=== PATIENT | male | born 1960 | race Caucasian/White ===

== ENCOUNTER 2023-10-19 09:31 | Observation (INO) ==
--- NOTE | 2023-07-20 14:20 | History & Physical Report ---
Date of Service July 20, 2023 Assessment & Plan (1) Dupuytren's contracture of left hand: Plan: 1. Extensive return of Dupuytren disease with contractures, left hand 2. 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 History of ESRD on dialysis via LUE fistula, MWF 4. History steal syndrome from fistula 5. History DM2 -Patient notes progression of the contractures in his left fingers/hand as condition returned following previous fasciectomy surgery and subsequent Xiaflex injection was not successful -Dr. De Leon met with the patient at bedside as well and discussed surgical options. Discussed limited time for surgery due to tourniquet use and will need to do surgery in a step-sue fashion starting with the most severe digits Will plan for: -Left index finger palmar fasciectomy in finger and palm -Left middle finger palmar fasciectomy in finger and palm -Left 1st webspace z-plasty, 2 limb, 60 degree -May need to do additional capsulectomies if necessary Will plan for forearm tourniquet below the fistula Patient will need to obtain a hgbA1c prior to surgery to ensure levels are within adequate range to allow optimal healing. The risks and benefits have been discussed including, but not limited to, risk of infection, nerve injury, stiffness, loss of motion, failure to improve, etc. Reasonable outcomes and options of treatment were discussed. An explanation of appropriate alternatives to the procedure that may be advantageous were discussed and their risks and benefits, as well as the risks and benefits of not proceeding with treatment. I offered to answer any additional inquiries concerning the treatment involved. All the patient's questions were answered. The patient is agreeable, understanding of the treatment plan and alternatives, and wishes to proceed with the treatment plan. Plan for surgical treatment shortly. History of Present Illness Chief Complaint: Left hand Dupuytren's contractures Primary Care Provider: NO PCP Mr. Merida is a 63 year old male with history of ESRD on dialysis MWF with LUE fistula and DM2 who presents for pre-operative assessment to discuss left palmar fasciectomies for which he was previously evaluated by Dr. De Leon. Patient notes progression of the contractures in his fingers/hand as condition returned following previous fasciectomy surgery and subsequent Xiaflex injection was not successful. He is anticipating surgery as the contractures have continued to worsen and he is unable to use his hand secondary to this. The patient does have history of DM2, no recent hgbA1c. He is not currently on any diabetic medications. He denies the use of anticoagulants/antiplatelets. Past Med/Surg History Medical History Family history of diabetes mellitus (DM) Dyslipidemia HTN (hypertension) DM2 (diabetes mellitus, type 2) Dialysis patient ESRD (end stage renal disease) Surgical History Status post Dupuytren's fasciectomy AV fistula Family History Other Family history of diabetes mellitus (DM) Social History Smoking Status: Smoker, status unknown Tobacco Type: Smokeless Tobacco (Dip or Chew) Hx Substance Use: No Review of Systems Review of Systems: All systems were reviewed and were negative unless otherwise stated in HPI as above Physical Exam Physical Exam: General: Resting in chair, no acute distress Heart: Regular rate and rhythm Lungs: Good inspiratory effort on room air, clear bilaterally LUE: Fistula in place with palpable thrill Left index finger: MP extension contracture 65 degrees, PIP extension contracture 105 degrees. Questionable cord at the PIP Left middle finger/hand: MP extension contracture 75 degrees, PIP extension contracture 90 degrees with palpable palmar nodule extending into the index and middle fingers Left ring finger: MP extension contracture 75 degrees, PIP extension contracture 70 degrees with palpable cord in the palm extending into the PIP Left small finger: Chronic boutonniere deformity. MP extension contracture 60 degrees, PIP extension contracture 100 degrees with palpable PIP cord Left thumb/1st webspace: Webspace contracture with palpable cord
--- NOTE | 2023-08-11 10:50 | Anesthesiology Consultation ---
Date of Service August 11, 2023 Assessment & Plan (1) Encounter for pre-operative examination: - Check BMP AM DOS (Dialysis MWF) - Check BSG AM DOS - Infectious disease screening: Per assessment on 08/06/23: No known infectious disease contacts or current infectious disease symptoms. No noted recent Covid positive test result. Patient is on dialysis. Unable to have preop Covid testing prior so will order [facility] test DOS per protocol. - Preop testing: No recent CXR- most recent available CXR from 02/05/23 notes "Bilateral airspace opacities with mild interstitial prominence which may reflect developing edema and/or infection." Patient seen by [facility] 07/20/23- notes "Lungs: Good inspiratory effort on room air, clear bilaterally" > Will update CXR DOS. - Patient acceptable risk for given surgery pending evaluation/preop testing DOS. Chart Review Chart Review: Acceptable Risk for Surgery and Patient NOT seen in Pre Admission Testing History Surgery Operation Date: 08/17/23 13:50 Proposed Procedures p Left Middle and Index Palmar Fasciectomy in Finger and Palm, Left Thumb Webspace Release and Z-Plasty - Bruce De Leon MD Height/Weight Height: 6 ft 2 in Weight: 95.254 kg Allergies Allergy/AdvReac Type Severity Reaction Status Date / Time No Known Allergies Allergy Verified 08/06/23 09:36 Medications Home Medications Medication Instructions Recorded Confirmed Last Taken amlodipine 10 mg tablet 10 mg PO DAILY 08/06/23 08/06/23 Unknown atorvastatin 40 mg tablet 40 mg PO DAILY 08/06/23 08/06/23 Unknown cetirizine 10 mg tablet 10 mg PO DAILY PRN Congestion 08/06/23 08/06/23 Unknown clonidine 0.2 mg/24 hr weekly 0.2 mg topical 2XWK 08/06/23 08/06/23 Unknown transdermal patch gabapentin 100 mg capsule 100 mg PO BID 08/06/23 08/06/23 Unknown lisinopril 40 mg tablet 40 mg PO DAILY 08/06/23 08/06/23 Unknown sevelamer carbonate 800 mg tablet 800 mg PO TID 08/06/23 08/06/23 Unknown Past Medical History Medical History (Updated 08/11/23 @ 10:40 by Penelope Hanna) Dupuytren's contracture of left hand Acid reflux Occasional Diabetic neuropathy legs Hyperlipidemia History of COVID-2019 Dyslipidemia HTN (hypertension) DM2 (diabetes mellitus, type 2) Diet controlled (no meds at present) Dialysis patient M/W/F, [facility] in [place] ESRD (end stage renal disease) Follows with Dr. Fermin ([facility]) Past Family History Family History Other Family history of diabetes mellitus (DM) Past Surgical History Surgical History Cataracts, bilateral s/p surgery Aug 2022 PH History of esophagogastroduodenoscopy (EGD) History of colonoscopy History of tooth extraction Status post Dupuytren's fasciectomy right x2, left x1 AV fistula left Social History Smoking Status: Never smoker Do You Dip or Chew Tobacco: No (remote hx) Hx Alcohol Use: No Hx Substance Use: No substance use type: does not use Testing Laboratory Results 07/21/23 WBC 9.2 H/H 11.1/35.5 PLATELETS 230 SODIUM 134 POTASSIUM 4.7 CHLORIDE 98 CO2 23 BUN 51 CREATININE 6.88 Electrocardiogram Date: 02/05/23 SR at 91bpm. Possible LAE. Possible LVH. Possible septal infarct, age indeterminate (per sheet rocker comparison on tracings, "criteria for infarct are new- although actual ECG changes are minor"). Borderline IVCD. NS TWA. Chest X-Ray Date: 02/05/23 Bilateral airspace opacities with mild interstitial prominence which may reflect developing edema and/or infection.
--- NOTE | 2023-10-14 17:42 | History & Physical Report ---
Date of Service October 14, 2023 Assessment & Plan (1) Dupuytren's contracture of left hand: Plan: 1. Extensive return of Dupuytren disease with contractures, left hand 2. 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 History of ESRD on dialysis via LUE fistula, MWF 4. History steal syndrome from fistula 5. History DM2 -Patient notes progression of the contractures in his left fingers/hand as condition returned following previous fasciectomy surgery and subsequent Xiaflex injection was not successful -Dr. De Leon met with the patient at bedside as well and discussed surgical options. Discussed limited time for surgery due to tourniquet use and will need to do surgery in a step-sue fashion starting with the most severe digits Will plan for: -Left index finger palmar fasciectomy in finger and palm -Left middle finger palmar fasciectomy in finger and palm -Left 1st webspace z-plasty, 2 limb, 60 degree -May need to do additional capsulectomies if necessary Will plan for forearm tourniquet below the fistula Patient will need to obtain a hgbA1c prior to surgery to ensure levels are within adequate range to allow optimal healing. The risks and benefits have been discussed including, but not limited to, risk of infection, nerve injury, stiffness, loss of motion, failure to improve, etc. Reasonable outcomes and options of treatment were discussed. An explanation of appropriate alternatives to the procedure that may be advantageous were discussed and their risks and benefits, as well as the risks and benefits of not proceeding with treatment. I offered to answer any additional inquiries concerning the treatment involved. All the patient's questions were answered. The patient is agreeable, understanding of the treatment plan and alternatives, and wishes to proceed with the treatment plan. Plan for surgical treatment shortly. Plan Will plan for surgical intervention shortly. Hemoglobin A1c is 8.1. I discussed with him some increased risk of infection given elevated hemoglobin A1c. However I feel this is the best hemoglobin A1c he will be able to realistically obtained. History of Present Illness Chief Complaint: Left hand contracture Primary Care Provider: NO PCP This is a gentleman well-known to me. He is status post Dupuytren's Xiaflex injection as well as previous surgery for Dupuytren's disease. He presents with recurrent severe disease. He presents for palmar fasciectomy. He was previously scheduled several times for surgical intervention but this was canceled due to difficulty in transportation, getting a ride, snowstorm's, etc. Allergies Allergy/AdvReac Type Severity Reaction Status Date / Time No Known Allergies Allergy Verified 08/06/23 09:36 Home Medications Medication Instructions Recorded Confirmed Type amlodipine 10 mg tablet 10 mg PO DAILY 08/06/23 08/06/23 History atorvastatin 40 mg tablet 40 mg PO DAILY 08/06/23 08/06/23 History cetirizine 10 mg tablet 10 mg PO DAILY PRN Congestion 08/06/23 08/06/23 History clonidine 0.2 mg/24 hr weekly 0.2 mg topical 2XWK 08/06/23 08/06/23 History transdermal patch gabapentin 100 mg capsule 100 mg PO BID 08/06/23 08/06/23 History lisinopril 40 mg tablet 40 mg PO DAILY 08/06/23 08/06/23 History sevelamer carbonate 800 mg tablet 800 mg PO TID 08/06/23 08/06/23 History Past Med/Surg History Medical History Dupuytren's contracture of left hand Acid reflux Occasional Diabetic neuropathy legs Hyperlipidemia History of COV2019 Dyslipidemia HTN (hypertension) DM2 (diabetes mellitus, type 2) Diet controlled (no meds at present) Dialysis patient M/W/F, [facility] in [place] ESRD (end stage renal disease) Follows with Dr. Fermin ([facility]) Surgical History Cataracts, bilateral s/p surgery Aug 2022 History of esophagogastroduodenoscopy (EGD) History of colonoscopy History of tooth extraction Status post Dupuytren's fasciectomy right x2, left x1 AV fistula left Family History Other Family history of diabetes mellitus (DM) Social History Smoking Status: Never smoker Tobacco Type: Smokeless Tobacco (Dip or Chew) Second Hand Exposure: No; Do You Dip or Chew Tobacco: No (remote hx); Tobacco Cessation Education Requested by Patient: No Hx Alcohol Use: No Hx Substance Use: No Preferred Language: [place] Islander Communication Ability: Effective Nurse Unit Manager Required: No Beliefs That Will Affect Care: None Current Living Situation: Spouse Other Information That Helps Us Care for You: No Feels Safe at Home: Yes Safety Concerns: Feels Safe At This Time Assistive Devices: Denture - Upper, Denture - Lower and Glasses Review of Systems Review of Systems: All systems were reviewed and were negative unless otherwise stated in HPI as above Physical Exam Respiratory: Lungs are clear Cardiovascular: Heart is regular
[~2023-10-19 09:31] MED LIST: DEXAMETHASONE SOD INJ 4 MG/ML VIAL ONE; LIDOCAINE 2% 2 ML VIAL/AMP(20MG/ML) INFIL ONE; MIDAZOLAM HCL 1 MG/ML 2ML VIAL ONE; ONDANSETRON INJ 2 MG/ML 2 ML VIAL ONE; PROPOFOL IV EMULSION 10 MG/ML 20 ML VIAL IV ONE; SODIUM CHLORIDE 0.9% 1000ML IV SCH; ceFAZolin 2000MG 2,000 MG/15 ML SYR IV SCH; fentaNYL citrate PF 100 MCG/2 ML VIAL ONE
--- NOTE | 2023-10-19 10:41 | XRay Report ---
XR chest 2V PA/lateral HISTORY: preop order COMPARISON: None. FINDINGS: The cardiac silhouette is mildly enlarged. The lungs are clear. No pleural effusions. No pn eumothorax. No acute fractures. IMPRESSION: Mild cardiomegaly. Otherwise, no acute process within the chest. ACT 112: Negative or not required by law. Electronically signed by: Saud Mehta M.D. 10/19/2023 10:40 AM
--- NOTE | 2023-10-19 10:45 | History & Physical Bridge Note ---
Date of Service October 19, 2023 History & Physical Bridge Note I have examined the patient, reviewed the History & Physical and in the interval since the performance of the History & Physical I have noted the following changes of clinical significance: no changes noted
[2023-10-19 11:28] LABS: Basophils # (auto) 0.07 K/uL (0.00-0.20); Basophils % (auto) 0.9 %; Eosinophils # (auto) 0.44 K/uL (0.00-0.50); Eosinophils % (auto) 5.4 %; Hematocrit (blood only) 35.1 % (42.0-52.0); Hemoglobin 11.5 g/dl (14.0-18.0); Immature Granulocytes # (auto) 0.04 K/uL (0.01-0.20); Immature Granulocytes % (auto) 0.5 %; Lymphocytes % (auto) 14.7 %; Mean Corpuscular Hemoglobin 27.4 pg (25.0-34.0); Mean Corpuscular Hgb Conc 32.8 g/dL (32.0-36.0); Mean Corpuscular Volume 83.8 fL (80.0-100.0); Monocytes # (auto) 0.85 K/uL (0.11-0.59); Monocytes % (auto) 10.4 %; Neutrophils # (auto) 5.54 K/uL (1.40-6.50); Neutrophils % (auto) 68.1 %; Platelet Count 222 K/uL (130-400); RDW Coefficient of Variation 16.6 % (11.5-14.5); RDW Standard Deviation 49.4 fL (36.4-46.3); Red Blood Count 4.19 M/uL (4.70-6.10); White Blood Count 8.14 K/ul (4.8-10.8)
[2023-10-19 11:45] LABS: BUN Creatinine Ratio 6.8 (10-20); Calcium 9.1 mg/dl (8.6-10.3); Creatinine Clr Calc Pharmacy 15.5 ml/min; Est GFR (African American) 11.5 ml/min; Est GFR (Non-African American) 9.9 ml/min
[2023-10-19] MEDS ORDERED: MIDAZOLAM HCL 1 MG/ML 2ML VIAL ONE (12:44)
[2023-10-19] MEDS ORDERED: fentaNYL citrate PF 100 MCG/2 ML VIAL ONE (12:44)
[2023-10-19] MEDS ORDERED: LIDOCAINE 2% 2 ML VIAL/AMP(20MG/ML) INFIL ONE ×2 (12:46→12:50)
[2023-10-19] MEDS ORDERED: LIDOCAINE 2% LOCAL 50 ML VIAL ONE (12:46)
[2023-10-19] MEDS ORDERED: ONDANSETRON INJ 2 MG/ML 2 ML VIAL ONE (12:50)
[2023-10-19] MEDS ORDERED: PROPOFOL IV EMULSION 10 MG/ML 20 ML VIAL IV ONE ×2 (12:50→15:09)
[2023-10-19] MEDS: SODIUM CHLORIDE 0.9% 1,000 ML IV SCH (13:07)
--- NOTE | 2023-10-19 13:19 | Operative Report ---
Post Operative Report Procedure Date: October 19, 2023 PRE-OP DIAGNOSIS: Left hand extensive Dupuytren's disease in the thumb, index, middle, ring, and small finger, left first webspace contracture POST-OP DIAGNOSIS: Same plus left index finger flexor tendinopathy FDS tendon, left middle finger flexor tendinopathy FDS tendon PROCEDURE: Left palmar fasciectomy middle finger in finger and palm, left palmar fasciectomy ring finger, left excision FDS tendon index finger, left excision FDS tendon middle finger, 2 limb Z-plasty first webspace, excision commissural cord first webspace. SURGEON: Arash De Leon MD ADVERTISING DISPLAY ROTATOR: Carter Blanco PA-C ANESTHESIA: Regional block with sedation FINDINGS: Extensive Dupuytren's disease in the hand. Index finger did not show significant cord from Dupuytren's disease and I felt had intrinsic contracture. The flexor tendons were significantly tight I excised the FDS with substantial improvement in contracture. Middle finger showed large cord extending from the palm to the level of the proximal phalanx. I excised this was good improvement. There is also substantial contracture of the flexor tendons and had significant improvement with excision of FDS tendon. Ring finger showed small recurrent cord in the palm also some mild tightness in the flexor tendons, but I elected to leave the FDS tendon intact. There was significant contracture in the first web with a superficial and deep commissural cord. INDICATIONS: Is a gentleman with progressive Dupuytren's disease in the left hand. He presents with severe contractures with inability to use his hand at all and fixed 9090 degree contractures of all of his digits including a webspace contracture. He shows evidence of recurrent disease after surgery in his ring finger for Dupuytren's. The risks and benefits have been discussed including, but not limited to, risk of infection, nerve injury, stiffness, loss of motion, failure to improve, etc. Reasonable outcomes and options of treatment were discussed. An explanation of appropriate alternatives to the procedure that may be advantageous were discussed and their risks and benefits, as well as the risks and benefits of not proceeding with treatment. I offered to answer any additional inquiries concerning the treatment involved. All the patients questions were answered. The patient is agreeable, understanding of the treatment plan and alternatives, and wishes to proceed with the treatment plan. DESCRIPTION OF OPERATION: The patient was identified. The proper procedure and site were verified. A surgical time out was taken and observed. The patient was given perioperative antibiotics prior to the skin incision. After administration of anesthesia, the patient's arm prepped and draped in the usual sterile fashion. I first inspected the index finger. I was able to gently stretch the index finger other and there was significant intrinsic contracture in the finger. I palpated the volar surface and there is no evidence of cord. I felt that the flexor tendon was significantly tight. I elected to excise the FDS tendon. I made a longitudinal incision over the A1 aric and over the A1 aric. I made a second zigzag Cindy incision over the PIP joint and I excised the 2 tails of FDS tendon at its insertion. I then pulled the tendon proximally and excised the tendon in full. I was able to get both MP and PIP joint straight when extending them together. This did result in residual tightness of the DIP joint which I did feel was due to residual tightness of the FDP tendon. This however did show substantial improvement about the MP and PIP joints. There is no residual joint contracture at all of these joints. Attention was focused on the middle finger. Patient had a large pretendinous cord in the palm extending to the proximal phalanx. I performed his exam per incision over this area and I performed palmar fasciectomy and finger and palm. This resulted in substantial improvements. There is no residual contracture at the PIP joint but with both MP and PIP extended there is substantial tightness of the flexor tendons. Elected to proceed with excision of FDS as this had improvement in the other finger. Open the A3 aric and incised the tendon at its tails. I then pulled the tendon proximally and open the A1 aric. I then transected the tendon and allowed the remaining tendon to retract proximally. This did result in substantial improvement in contracture of the MP and PIP joints with mild residual tightness at the DIP joint. Attention was focused on commissural cord. I made a 60 degree Spencer Z-plasty in the first webspace and elevated flaps. There was a superficial and deep commissural cord. Both of these were excised. This did open up the webspace. I then transposed the flaps. Tourniquet was let down prior to closure. Skin was closed with 4-0 Vicryl Rapide. Tourniquet was let down prior to closure. Hemostasis was obtained with bipolar electrocautery. Middle finger incisions were closed in a wide to the fashion with 4-0 Vicryl Rapide and remaining incisions were closed with 4-0 Vicryl Rapide. Patient was placed in a volar splint with the fingers in extension and sent to the PACU in a stable condition. Postoperative plan be Dupuytren's postop protocol with forearm-based brace with fingers in extension and aggressive range of motion, concentrating on extension. Due to the complex nature of the procedure, the entire surgery was performed with the operational assistance of Carter Blanco PA-C.The assistant department manager, under direct supervision, was involved in the actual performance of all aspects of the surgical procedure including hemostasis, tissue retraction and incision, ins trument management, patient positioning, and wound closure. Attestation: I attest to the content of the Intraoperative Record and any orders documented therein. Any exceptions are noted below.
[2023-10-19] MEDS: ceFAZolin 2000MG 2,000 MG/15 ML SYR IV SCH (13:39)
--- NOTE | 2023-10-19 15:08 | Post Operative Brief Note ---
Immediate Post Op Note v1 Date of Surgery October 19, 2023 Pre & Post Diagnosis Operation Date: 10/19/23 12:05 <No data on this case meets the specified criteria> Left hand extensive Dupuytren's disease, left first webspace contracture I identified the patient and participated in the time-out.: Yes Procedure Left palmar fasciectomy middle and ring finger, excision FDS tendon left middle finger and index finger, 2 limb 60 degree Z-plasty, excision commissural cord and first webspace Operation Date: 10/19/23 12:05 <No data on this case meets the specified criteria> Surgeon Bruce De Leon MD Parts Analyst Carter Blanco PA-C Estimated Blood Loss 5 Findings Consistent with Post-Op Diagnosis Severe Dupuytren's disease. Patient had severe contracture of the flexor tendons in the second and third digits.
[2023-10-19] MEDS ORDERED: diphenhydrAMINE 50 MG/ML VIAL IV PRN (15:46)
[2023-10-19] MEDS ORDERED: diphenhydrAMINE Capsule 25 MG CAP PO PRN (15:46)
[2023-10-19] MEDS ORDERED: ONDANSETRON INJ 2 MG/ML 2 ML VIAL IV PRN (15:46)
[2023-10-19] MEDS ORDERED: ALUMINUM/MAGNESIUM SUSP 30 ML UDC PO PRN (15:46)
[2023-10-19] MEDS ORDERED: ACETAMINOPHEN 325 MG TAB PO PRN (15:46)
[2023-10-19] MEDS ORDERED: MoRPHine SULFATE 4 MG/ML 1 ML CARP\\VIAL IV PRN (15:53)
--- NOTE | 2023-10-19 16:20 | Anesthesiology Progress Note ---
Date of Service October 19, 2023 Anesthesia Post Procedure Vital Signs Vital Signs: Temp Pulse Resp BP O2 Del Method 10/19/23 10:57 36.5 C 73 20 151/80 H Room Air Transfer of Care Handoff Completed per policy Notes Mental Status: alert / awake / arousable and participated in evaluation Patient Amnestic to Procedure: Yes Nausea / Vomiting: adequately controlled Pain: adequately controlled Airway Patency, RR, SpO2: stable & adequate BP & HR: stable & adequate Hydration State: stable & adequate Anesthetic Complications: no major complications apparent
[2023-10-19] MEDS: oxyCODONE/ACETAMINOPHEN 5mg/325mg TAB PO PRN (18:03)
[2023-10-19] MEDS: SEVELAMER HCL 800 MG TABLET PO SCH (18:03)
[2023-10-19] MEDS: GABAPENTIN 100 MG CAP PO SCH (21:01)
[2023-10-20] MEDS: ATORVASTATIN 40 MG TAB PO SCH (07:56)
[2023-10-20] MEDS: lisinopril 40 MG TAB PO SCH (07:57)
[2023-10-20] MEDS: amLODIPine BESYLATE 5 MG TAB PO SCH (07:57)
--- NOTE | 2023-10-20 07:58 | Communication Note ---
Date of Service: October 20, 2023 The patient tolerated his left hand procedure well yesterday. He was kept for 23-hour observation because of using a ride service to and from the hospital, and he was not going to have a family member or a friend at home after the moderate sedation for yesterday's case. He is able to discharge this morning and return home when his ride services there to get him. His plan will be to return home for dialysis today. His prescription for pain medication was sent to his pharmacy from our [facility]. Plan is for a postoperative visit 10-14 days postop. He will start physical therapy 5-7 days postop for a forearm-based brace.
--- NOTE | 2023-10-20 09:34 | Hospitalist Consultation ---
Date of Consultation October 20, 2023 Assessment & Plan (1) Dupuytren's contracture of left hand: - s/p Left Index and Middle Finger Palmar Fasciectomy, Left Thumb Webspace Release and Zplasty, Left Index and Middle Finger Excision Flexor Digitorum Superficialis with Dr. De Leon on 10/18 - Pain control / abx/ DVT proh per primarily (2) Dialysis patient: - MWF at [facility] in [facility] - Was scheduled for dialysis at 8am this morning, but missed it due to being hospitalized. Patient reports that he normally drives himself to dialysis but did not drive to the hospital, had a ride service but unsure of name. - Case Management spoke to [facility] and if we can get him there before 1230 they will be able to perform his dialysis today. Plan for case management to arrange ride and patient states he will be able to get a ride home from dialysis. - If unable to arrange a ride in time, then will consult nephrology for inpatient dialysis. - continue Sevelamer carbonate (3) DM2 (diabetes mellitus, type 2): Not on meds at baseline A1c 8.2 pre-operatively - will defer outpatient management to PCP (4) HTN (hypertension): Continue home amlodipine, clonidine patch and lisinopril (5) Infestation by bed bug: Patient arrived to preop and was noticed to have bed bugs. Decontaminated in the ER prior to OR procedure. - Per infection control does not require isolation after decontamination - Keep patient clothing/belongings in double sealed bag - recommend home decontamination. Extinguish from clothing by putting through dryer on full cycle heat first and then washing Plan Dispo: medically stable - can discharge today if can arrange and arrive at diaylsis otherwise will need to stay for inpatient dialysis Discussed case with casework specialist. Supervising Physician Co-Signing Physician Notes Attending Attestation: Chart reviewed in detail, care plan d/w DESHAUN Gonsalves. I agree with the jimenez components of her consult documentation. Of note - I did not perform a bedside evaluation or physical exam. 63yo female with ESRD on HD M/W/F who is now POD #1 s/p left Dupuytren's contracture release. Labs on 10/19/23 were acceptable, & vitals are stable at this time. Today is an HD day and if transportation can be arranged he will discharge from [facility] and travel to his dialysis center for routine dialysis. From medical standpoint appears stable for discharge. Thomas Sykes MD History of Present Illness Reason for Consultation: Medical management Attending Physician: Bruce De Leon MD History of Present Illness Luke is a 63M with a hx of ESRD on [facility] MWF, HTN, and DM who present to the hospital for elective hand surgery. This had to be rescheduled multiple times due to social factors and weather. Patient was kept overnight as he did not have anyone to stay with him for 24 hours after sedation. He came to [facility] via transport service (patient unsure of name) however he does drive locally, patient is from [place]. States he usually drives to [facility], his car is currently at home. He lives alone and does all of the cooking and cleaning himself. Today feels well, pain is controlled in his hand. Good appetite. Allergies Allergy/AdvReac Type Severity Reaction Status Date / Time No Known Allergies Allergy Verified 10/19/23 11:23 Home Medications Medication Instructions Recorded Confirmed Type amlodipine 10 mg tablet 10 mg PO DAILY 08/06/23 10/19/23 History atorvastatin 40 mg tablet 40 mg PO DAILY 08/06/23 10/19/23 History cetirizine 10 mg tablet 10 mg PO DAILY PRN Congestion 08/06/23 10/19/23 History clonidine 0.2 mg/24 hr weekly 0.2 mg topical 2XWK 08/06/23 10/19/23 History transdermal patch gabapentin 100 mg capsule 100 mg PO BID 08/06/23 10/19/23 History lisinopril 40 mg tablet 40 mg PO DAILY 08/06/23 10/19/23 History sevelamer carbonate 800 mg tablet 800 mg PO TID 08/06/23 10/19/23 History hydrocodone 5 mg-acetaminophen 325 1 tab PO Q6H PRN pain #15 tabs 10/20/23 Rx mg tablet Patient History Medical History (Updated 10/20/23 @ 09:44 by Vilma Gonsalves PA-C) Dupuytren's contracture of left hand Acid reflux Occasional Diabetic neuropathy legs Hyperlipidemia History of COVID-2019 Dyslipidemia HTN (hypertension) DM2 (diabetes mellitus, type 2) Diet controlled (no meds at present) Dialysis patient M/W/F, [place] in [place] ESRD (end stage renal disease) [facility] Fermin [facility] Surgical History Cataracts, bilateral s/p surgery Aug 2022 PH History of esophagogastroduodenoscopy (EGD) History of colonoscopy History of tooth extraction Status post Dupuytren's fasciectomy right x2, left x1 AV fistula left Family History Other Family history of diabetes mellitus (DM) Social History Smoking Status: Never smoker Tobacco Type: Smokeless Tobacco (Dip or Chew) Second Hand Exposure: No; Do You Dip or Chew Tobacco: No; Tobacco Cessation Education Requested by Patient: No Hx Alcohol Use: No Hx Substance Use: No Preferred Language: Arabic Communication Ability: Effective Delivery Engineer Required: No Beliefs That Will Affect Care: None Current Living Situation: Alone Feels Safe at Home: Yes Safety Concerns: Feels Safe At This Time Assistive Devices: None Review of Systems Review of Systems: All systems reviewed & are unremarkable except as noted in Subjective Physical Exam Physical Exam: Breathing unlabored. No acute distress A&O x3 Raymond bandage present over right hand Results & Data Results & Data Vital Signs (Past 12 Hours) Vital Signs Temp Pulse Resp BP Pulse Ox O2 Del Method 10/20/23 07:12 36.5 C 74 18 166/83 H 100 Room Air 10/20/23 04:18 36.6 C 69 18 157/80 H 96 Room Air 10/19/23 23:16 36.6 C 68 18 164/83 H 98 Room Air Laboratory Results CBC and chemistry reviewed PG Care Time/CCT Total # of Minutes Spent Total Time Spent with Patient: Total time spent is greater than 50% in coordination of care (as documented) at patient's floor/unit and/or counseling patient: Coding Level of Care Code 77346 IN/OBS CONSULT LVL 3,45M Diagnoses Dupuytren's contracture of left hand M72.0 Dialysis patient Z99.2 DM2 (diabetes mellitus, type 2) E11.9 HTN (hypertension) I10 Infestation by bed bug B88.8
== END 2023-10-20 10:45 | disposition home or self-care (01) ==
LOC: 3E 09:31 → ASU 09:31
DX: Z79.899 Other long term (current) drug therapy; N18.6 End stage renal disease; I12.0 Hypertensive chronic kidney disease with stage 5 chronic kidney disease or end stage renal disease; Z86.16 Personal history of COVID-19; M72.0 Palmar fascial fibromatosis [Dupuytren]; E11.22 Type 2 diabetes mellitus with diabetic chronic kidney disease; Z99.2 Dependence on renal dialysis